=== PATIENT | female | born 1940 | race Caucasian/White ===

== ENCOUNTER 2020-04-09 12:08 | Outpatient (CLI) | payer MEDICARE ==
[~2020-04-09 12:08] MED LIST: Iopamidol 370 76% 100 ML VIAL ONE
--- NOTE | 2020-04-09 14:24 | CT ---
EXAM: CT Abdomen Pelvis W Con PROVIDED CLINICAL HISTORY: Abdominal pain, diarrhea COMPARISON: None FINDINGS: The visualized lung bases are free of significant opacity. There are simple appearing cysts arising each kidney. Smaller hypodensities are seen involving each k idney, too small to definitively characterize but likely also reflecting cysts. The liver, spleen, pancreas and adrenal glands appear unremarkable. There is no bowel dilatation, inflammatory fat stranding, free fluid or free air apparent. There are areas of apparent mural thickening involving portions of the transverse and descending colo n. These are primarily in the regions that do not contain significant oral contrast material suggesting cysts on the basis of nondistention. There is no evidence for appendicitis. There is no evidence for regional lymph node enlargement. Extensive atherosclerotic vascular calcification is demonstrated. The osseous structures demonstrate no concerning lytic or blastic lesions. Prominent degenerative tammie nges are seen involving the left hip. IMPRESSION: Areas of equivocal wall thickening involving the transverse and descending colon, likely on the basis of nondistention. Given the provided clinical history, colitis could also be considered.
== END 2020-04-09 12:09 | disposition home or self-care (01) ==
LOC: CT 12:08
PROVIDERS: ATTEND Physician Assistant
DX: D72.829 Elevated white blood cell count, unspecified (principal); R10.814 Left lower quadrant abdominal tenderness; R19.7 Diarrhea, unspecified; R10.9 Unspecified abdominal pain
CPT/HCPCS: 74177; Q9967

== ENCOUNTER 2021-04-15 13:43 | Outpatient (CLI) | payer MEDICARE | END 2021-04-15 13:44 | disposition home or self-care (01) | LOC: BICRAD 13:43 | PROVIDERS: ATTEND Family Medicine | DX: M25.552 Pain in left hip (principal); M53.3 Sacrococcygeal disorders, not elsewhere classified; M47.816 Spondylosis without myelopathy or radiculopathy, lumbar region; M16.0 Bilateral primary osteoarthritis of hip | CPT/HCPCS: 72100; 72220 ==

== ENCOUNTER 2022-07-06 10:33 | Outpatient (CLI) | payer MEDICARE | END 2022-07-06 10:34 | disposition home or self-care (01) | LOC: BICRAD 10:33 | PROVIDERS: ATTEND Family Medicine | DX: M25.552 Pain in left hip (principal); M54.42 Lumbago with sciatica, left side; M47.816 Spondylosis without myelopathy or radiculopathy, lumbar region; M16.12 Unilateral primary osteoarthritis, left hip | CPT/HCPCS: 72100 ==

== ENCOUNTER 2023-09-16 13:01 | Outpatient (CLI) | payer MEDICARE | END 2023-09-16 13:02 | disposition home or self-care (01) | LOC: SCSMRI 13:01 | PROVIDERS: ATTEND Student in an Organized Health Care Education/Training Program | DX: M47.26 Other spondylosis with radiculopathy, lumbar region (principal); M48.061 Spinal stenosis, lumbar region without neurogenic claudication; M47.817 Spondylosis without myelopathy or radiculopathy, lumbosacral region; M48.07 Spinal stenosis, lumbosacral region; R60.0 Localized edema | CPT/HCPCS: 72148 ==

== ENCOUNTER 2025-01-03 14:17 | Emergency (ER) | payer MEDICARE, OTHER ==
[2025-01-03 16:21] LABS: #Basophils 0.08 10x3/uL (0.0-0.2); #Eosinophils 0.09 10x3/uL (0.0-0.7); #Monocytes 0.94 10x3/uL (0.11-0.59); #Neutrophils 9.35 10x3/uL (1.40-6.50); %Basophils 0.6 % (0.0-1.0); %Eosinophils 0.7 % (0.0-10.0); %Lymphocytes 16.3 % (21.0-51.0); %Monocytes 7.5 % (0.0-10.0); %Neutrophils 74.6 % (42.0-75.0); Hematocrit 39.2 % (36.0-47.0); Hemoglobin 12.1 g/dL (12.0-16.0); Mean Corpuscular Hemoglobin 22.7 pg (27.0-31.0); Mean Corpuscular Volume 73.4 fL (78.0-98.0); Platelet Count 272 10x3/uL (130-400); Red Blood Cell (RBC) Count 5.34 mill/uL (4.20-5.40); White Blood Cell (WBC) Count 12.55 10x3/uL (4.8-10.8)
[2025-01-03] MEDS ORDERED: Cephalexin 250 MG CAP ONE (16:37)
[2025-01-03] MEDS ORDERED: Boostrix 0.5 ML (Tdap) VIAL (>/=7 yrs of age) ONE (16:38)
[2025-01-03 16:56] LABS: ALT (SGPT) 10 U/L (Less than 34); AST (SGOT) 31 U/L (11-34); Albumin 3.6 g/dL (3.1-4.5); Alkaline Phosphatase 109 U/L (40-110); Anion Gap 18 mmol/L (10-20); BUN (Urea Nitrogen) 24 mg/dL (9.8-20.1); Bilirubin, Total 0.3 mg/dL (0.3-1.2); Calc. Creatinine Clearance 0 mL/min (70-130); Calcium 9.3 mg/dL (7.8-10.44); Carbon Dioxide 24 mmol/L (23-31); Chloride 106 mmol/L (98-107); Globulin 4.4 g/dL (2.4-3.5); Glucose 124 mg/dL (83-110); Potassium 4.3 mmol/L (3.5-5.1); Sodium 144 mmol/L (136-145)
[2025-01-03 16:57] LABS: Macrocytosis SLIGHT = 6-15 cells HPF (0-5); Microcytosis SLIGHT = 6-15 cells HPF (0-5); Platelet Adequacy Comment Platelets Normal; Target Cells SLIGHT = 2-5 cells HPF (0-1)
== END 2025-01-03 17:25 | disposition home or self-care (01) ==
LOC: ERS 14:17
DX: L03.116 Cellulitis of left lower limb (principal); E11.9 Type 2 diabetes mellitus without complications; Z55.6 Problems related to health literacy; Z23 Encounter for immunization
CPT/HCPCS: 80053; 85025; 90471; 90715

== ENCOUNTER 2025-01-23 20:14 | Inpatient (IN) | payer MEDICARE ==
[2025-01-23] MEDS ORDERED: Senokot S 8.6-50 MG TAB PO PRN (20:45)
[2025-01-23] MEDS ORDERED: Acetaminophen 325 MG TAB PO PRN (20:45)
[2025-01-23] MEDS ORDERED: Calcium Carbonate 500 MG ChewTAB PO PRN (20:45)
[2025-01-23] MEDS ORDERED: niCARdipine 25 MG in Sodium Chloride 0.9% 250 ML 250 ML IVPB PRN (20:45)
[2025-01-23] MEDS ORDERED: Glucagon 1 MG/ML KIT IM PRN (20:57)
[2025-01-23] MEDS ORDERED: Dextrose 50% Abboject 50 ML SYRINGE SLOW IVP PRN (20:57)
[2025-01-24] MEDS: Famotidine/PF 20 mg/2ml Vial SLOW IVP SCH (00:53)
[2025-01-24 04:20] LABS: #Basophils 0.08 10x3/uL (0.0-0.2); #Eosinophils 0.21 10x3/uL (0.0-0.7); #Monocytes 0.85 10x3/uL (0.11-0.59); #Neutrophils 7.09 10x3/uL (1.40-6.50); %Basophils 0.8 % (0.0-1.0); %Eosinophils 2.1 % (0.0-10.0); %Lymphocytes 18.9 % (21.0-51.0); %Monocytes 8.3 % (0.0-10.0); %Neutrophils 69.5 % (42.0-75.0); Hematocrit 38.5 % (36.0-47.0); Hemoglobin 11.8 g/dL (12.0-16.0); Mean Corpuscular Hemoglobin 22.6 pg (27.0-31.0); Mean Corpuscular Volume 73.8 fL (78.0-98.0); Platelet Count 224 10x3/uL (130-400); Red Blood Cell (RBC) Count 5.22 mill/uL (4.20-5.40); White Blood Cell (WBC) Count 10.20 10x3/uL (4.8-10.8)
[2025-01-24 04:38] LABS: ALT (SGPT) Less than 7 U/L (Less than 34); AST (SGOT) 26 U/L (11-34); Albumin 3.3 g/dL (3.1-4.5); Alkaline Phosphatase 107 U/L (40-110); Anion Gap 14 mmol/L (10-20); BUN (Urea Nitrogen) 17 mg/dL (9.8-20.1); Bilirubin, Total 0.4 mg/dL (0.3-1.2); Calc. Creatinine Clearance 63 mL/min (70-130); Calcium 8.7 mg/dL (7.8-10.44); Carbon Dioxide 24 mmol/L (23-31); Cardiac Risk 2.9 (Less than 4.5); Chloride 106 mmol/L (98-107); Cholesterol 163 mg/dl (< 200 Desired); Globulin 3.8 g/dL (2.4-3.5); Glucose 149 mg/dL (83-110); HDL Cholesterol 57 mg/dL (>60 Neg Risk); LDL Cholesterol, Calculated 53 mg/dL; Potassium 3.9 mmol/L (3.5-5.1); Sodium 140 mmol/L (136-145); Triglycerides 263 mg/dL (Less than 150)
[2025-01-24] MEDS ORDERED: niCARdipine 25 MG in Sodium Chloride 0.9% 250 ML 250 ML IVPB PRN (16:34)
[2025-01-24] MEDS: Ondansetron PF 4 MG/2 ML Vial IVP PRN (16:45)
[2025-01-24] MEDS: Mupirocin 1 GM TUBE NASAL DECOLONIZATION NASAL SCH (20:54)
[2025-01-25 04:28] VITALS: BMI 28.5
[2025-01-25 11:41] VITALS: TEMP 97.4
[2025-01-25 15:44] VITALS: BP 135/74
== END 2025-01-25 16:02 | disposition home health service (06) | DRG 304 ==
LOC: IMCU/EMU 20:29 → 2SE 01-24 21:20
PROVIDERS: ADMIT Internal Medicine; ATTEND Student in an Organized Health Care Education/Training Program
DX: I16.0 Hypertensive urgency (principal); I60.9 Nontraumatic subarachnoid hemorrhage, unspecified; R29.700 NIHSS score 0; G96.00 Cerebrospinal fluid leak, unspecified; E78.5 Hyperlipidemia, unspecified; N32.81 Overactive bladder; I10 Essential (primary) hypertension; M19.90 Unspecified osteoarthritis, unspecified site; Z90.49 Acquired absence of other specified parts of digestive tract; Z90.710 Acquired absence of both cervix and uterus; M54.9 Dorsalgia, unspecified; G31.9 Degenerative disease of nervous system, unspecified; D89.2 Hypergammaglobulinemia, unspecified; E11.42 Type 2 diabetes mellitus with diabetic polyneuropathy; Z79.84 Long term (current) use of oral hypoglycemic drugs; Z79.899 Other long term (current) drug therapy
CPT/HCPCS: 36415; 36416; 70450; 70496; 70498; 71045; 80053; 80061; 81001; 83036; 84443; 84484; 85025; 85610; 85730; 87086; 93005; 93306; 94760; 96374; J1308; J1815; J2405; Q9967